=== PATIENT | male | born 1930 | race Caucasian/White ===

== ENCOUNTER → 2016-07-30 | Outpatient (CLI) | payer OTHER, MEDICARE ==
[~2016-07-30] MED LIST: ALPHAGAN P10 ML OPHTHALMIC; APAP500 PO; ASPIR 8181 MG PO; CALCIUM 500 +1 EAC5 PO; CALCIUM500 MG; CENTRUM SILVER1 EAC4 PO; COSOPT EYE DROPS5 ML OPHTHALMIC; CRESTOR10 MG PO; DOXYCYCLINE 10100 MG PO; FISH OIL 1,001000 M2 PO; FLOMAX0.4 MG PO; IBUPROFEN 200200 M1 PO; LEVOTHYROXINE0.05 MG; MUCINEX TA600 MG/TA2 PO; NEURONTIN 300300 M1 PO; PAXIL10 MG; PREVACID 24HR15 MG; TOPROL XL25 MG PO; TRAMADOL 50 MG50 MG PO; TRAZODONE HCL100 MG PO; VITAMIN B-1100 M1 PO; XALATAN2.5 ML OPHTHALMIC
== END ==
LOC: RAD 13:01
DX: M25.571 Pain in right ankle and joints of right foot (principal)

== ENCOUNTER → 2016-08-02 | Outpatient (CLI) | payer OTHER, MEDICARE | LOC: HYPER 07:00 | DX: L89.890 Pressure ulcer of other site, unstageable (principal); I63.50 Cerebral infarction due to unspecified occlusion or stenosis of unspecified cerebral artery; G81.02 Flaccid hemiplegia affecting left dominant side; Z87.891 Personal history of nicotine dependence ==

== ENCOUNTER → 2016-09-22 | Outpatient (CLI) | payer OTHER, MEDICARE | LOC: HYPER 07:06 | DX: L89.890 Pressure ulcer of other site, unstageable (principal); G81.02 Flaccid hemiplegia affecting left dominant side; I25.10 Atherosclerotic heart disease of native coronary artery without angina pectoris; E78.00 Pure hypercholesterolemia, unspecified; I10 Essential (primary) hypertension; I48.0 Paroxysmal atrial fibrillation; Z85.46 Personal history of malignant neoplasm of prostate; Z85.828 Personal history of other malignant neoplasm of skin; Z86.73 Personal history of transient ischemic attack (TIA), and cerebral infarction without residual deficits; Z87.891 Personal history of nicotine dependence; Z72.89 Other problems related to lifestyle ==

== ENCOUNTER → 2016-10-25 | Outpatient (CLI) | payer OTHER, MEDICARE | LOC: HYPER 07:11 | DX: L89.890 Pressure ulcer of other site, unstageable (principal); G81.02 Flaccid hemiplegia affecting left dominant side; I25.10 Atherosclerotic heart disease of native coronary artery without angina pectoris; H91.90 Unspecified hearing loss, unspecified ear; E78.00 Pure hypercholesterolemia, unspecified; R73.9 Hyperglycemia, unspecified; I10 Essential (primary) hypertension; I48.0 Paroxysmal atrial fibrillation; Z85.46 Personal history of malignant neoplasm of prostate; Z86.03 Personal history of neoplasm of uncertain behavior; Z86.73 Personal history of transient ischemic attack (TIA), and cerebral infarction without residual deficits; Z85.828 Personal history of other malignant neoplasm of skin; Z87.891 Personal history of nicotine dependence; Z72.89 Other problems related to lifestyle ==

== ENCOUNTER → 2016-10-26 | Outpatient (CLI) | payer OTHER, MEDICARE | LOC: RAD 10:59 | DX: M48.02 Spinal stenosis, cervical region (principal); M47.892 Other spondylosis, cervical region ==

== ENCOUNTER → 2016-12-01 | Outpatient (CLI) | payer OTHER, MEDICARE | LOC: HYPER 07:09 | DX: L89.899 Pressure ulcer of other site, unspecified stage (principal); G81.02 Flaccid hemiplegia affecting left dominant side; I25.10 Atherosclerotic heart disease of native coronary artery without angina pectoris; H40.9 Unspecified glaucoma; H91.90 Unspecified hearing loss, unspecified ear; E78.00 Pure hypercholesterolemia, unspecified; R73.9 Hyperglycemia, unspecified; I10 Essential (primary) hypertension; F17.210 Nicotine dependence, cigarettes, uncomplicated; Z85.46 Personal history of malignant neoplasm of prostate; Z86.73 Personal history of transient ischemic attack (TIA), and cerebral infarction without residual deficits; Z98.49 Cataract extraction status, unspecified eye; Z72.89 Other problems related to lifestyle ==

== ENCOUNTER → 2017-01-24 | Outpatient (CLI) | payer OTHER, MEDICARE | LOC: HYPER 07:07 | DX: L89.890 Pressure ulcer of other site, unstageable (principal); G81.02 Flaccid hemiplegia affecting left dominant side; I63.50 Cerebral infarction due to unspecified occlusion or stenosis of unspecified cerebral artery; R63.0 Anorexia; E78.00 Pure hypercholesterolemia, unspecified; I10 Essential (primary) hypertension; R26.89 Other abnormalities of gait and mobility; Z85.828 Personal history of other malignant neoplasm of skin; I48.0 Paroxysmal atrial fibrillation; G47.09 Other insomnia; Z85.46 Personal history of malignant neoplasm of prostate; Z86.73 Personal history of transient ischemic attack (TIA), and cerebral infarction without residual deficits; Z87.891 Personal history of nicotine dependence ==

== ENCOUNTER → 2017-09-07 | Outpatient (CLI) | payer OTHER, MEDICARE ==
[~2017-09-07] MED LIST changes: +KEFLEX500 M1 PO
== END ==
LOC: HYPER 06:59
DX: L89.892 Pressure ulcer of other site, stage 2 (principal); I10 Essential (primary) hypertension; I63.50 Cerebral infarction due to unspecified occlusion or stenosis of unspecified cerebral artery; L84 Corns and callosities; E78.00 Pure hypercholesterolemia, unspecified; R73.9 Hyperglycemia, unspecified; B35.1 Tinea unguium; G81.02 Flaccid hemiplegia affecting left dominant side; Z85.828 Personal history of other malignant neoplasm of skin; Z85.46 Personal history of malignant neoplasm of prostate; Z86.73 Personal history of transient ischemic attack (TIA), and cerebral infarction without residual deficits; Z87.891 Personal history of nicotine dependence; Z72.89 Other problems related to lifestyle

== ENCOUNTER → 2017-09-22 | Outpatient (CLI) | payer OTHER, MEDICARE | LOC: HYPER 07:05 | DX: L89.890 Pressure ulcer of other site, unstageable (principal); I63.50 Cerebral infarction due to unspecified occlusion or stenosis of unspecified cerebral artery; G81.02 Flaccid hemiplegia affecting left dominant side; E78.00 Pure hypercholesterolemia, unspecified; I10 Essential (primary) hypertension; Z85.46 Personal history of malignant neoplasm of prostate; Z87.891 Personal history of nicotine dependence; Z72.89 Other problems related to lifestyle ==

== ENCOUNTER → 2017-10-19 | Outpatient (CLI) | payer OTHER, MEDICARE ==
[~2017-10-19] MED LIST changes: -KEFLEX500 M1 PO
== END ==
LOC: HYPER 07:49
DX: S91.102D Unspecified open wound of left great toe without damage to nail, subsequent encounter (principal); L89.890 Pressure ulcer of other site, unstageable; I63.50 Cerebral infarction due to unspecified occlusion or stenosis of unspecified cerebral artery; G81.02 Flaccid hemiplegia affecting left dominant side; E78.00 Pure hypercholesterolemia, unspecified; I48.0 Paroxysmal atrial fibrillation; Z85.46 Personal history of malignant neoplasm of prostate; Z86.73 Personal history of transient ischemic attack (TIA), and cerebral infarction without residual deficits; Z87.891 Personal history of nicotine dependence; X58.XXXD Exposure to other specified factors, subsequent encounter

== ENCOUNTER → 2018-01-11 | Outpatient (CLI) | payer OTHER, MEDICARE | LOC: HYPER 06:53 | DX: L89.890 Pressure ulcer of other site, unstageable (principal); I10 Essential (primary) hypertension; I63.50 Cerebral infarction due to unspecified occlusion or stenosis of unspecified cerebral artery; E78.00 Pure hypercholesterolemia, unspecified; B35.1 Tinea unguium; I48.0 Paroxysmal atrial fibrillation; G81.02 Flaccid hemiplegia affecting left dominant side; Z85.46 Personal history of malignant neoplasm of prostate; Z86.73 Personal history of transient ischemic attack (TIA), and cerebral infarction without residual deficits; Z87.891 Personal history of nicotine dependence ==

== ENCOUNTER 2018-04-16 16:48 | Emergency (ER) | payer OTHER, MEDICARE ==
[~2018-04-16] VITALS: Ht 193 cm; Wt 65.8 kg
[2018-04-16 17:16] LABS: URINE BLOOD 3+ (Negative); URINE CLARITY CLOUDY; URINE COLOR BROWN; URINE GLUCOSE-RANDOM* NEGATIVE (Negative); URINE KETONES TRACE (Negative); URINE PROTEIN (DIPSTICK) 2+ (Negative); URINE SPECIFIC GRAVITY >= 1.030 (1.005-1.035)
[2018-04-16 17:20] LABS: URINE LEUKOCYTES-REFLEX TRACE (Negative); URINE NITRITE-REFLEX POSITIVE (Negative)
[2018-04-16 17:21] LABS: ICTOTEST (BILI CONFIRMATORY) Negative (Negative); URINE BILIRUBIN NEGATIVE (Negative)
[2018-04-16 17:23] LABS: CALCIUM OXALATE 0-3 Few /LPF (None Seen); CASTS None Seen /LPF (None Seen); MUCUS 4-6 Moderate strn/LPF (None Seen); SQUAMOUS 0-3 Few /LPF (0-3)
[2018-04-16 17:24] LABS: URINE RBC >20 Many /HPF (0-2); URINE WBC-REFLEX 0-5 Rare /HPF (0-5)
[2018-04-16 18:14] LABS: HEMATOCRIT 38.8 % (42.0-52.0); HEMOGLOBIN 13.4 gm/dL (14.0-18.0); MCHC 34.6 g/dL (28.0-37.0); MCV 98.1 fL (80.0-100.0); PLATELET COUNT 126 thou/uL (150-400); RBC 3.95 mil/uL (4.50-6.00); RDW 13.4 % (10.5-14.5); WBC 11.4 thou/uL (4.0-11.0)
[2018-04-16 18:35] LABS: CREATININE 1.2 mg/dL (0.7-1.3); POTASSIUM 4.4 mmol/L (3.5-5.1)
[2018-04-16 18:41] LABS: ALBUMIN 2.9 g/dL (3.4-5.0); TOTAL BILIRUBIN 0.3 mg/dL (<0.1-1.0)
[2018-04-16 18:44] LABS: ABSOLUTE NEUTROPHILS 7.6 thou/uL (1.4-8.2); ANISOCYTOSIS 1+
[2018-04-16 18:45] LABS: POLYCHROMASIA OCCASIONAL
[2018-04-16] MEDS ORDERED: KEFLEX500 M1 PO (20:24)
== END 2018-04-16 20:36 | disposition home or self-care (01) ==
LOC: ER 16:48
PROVIDERS: Physician Assistant
DX: N39.0 Urinary tract infection, site not specified (principal); E78.00 Pure hypercholesterolemia, unspecified; Z85.46 Personal history of malignant neoplasm of prostate; Z86.73 Personal history of transient ischemic attack (TIA), and cerebral infarction without residual deficits; Z87.442 Personal history of urinary calculi; Z79.899 Other long term (current) drug therapy